=== PATIENT | male | born 1970 | race African-American/Black ===

== ENCOUNTER 2020-02-23 00:23 | Inpatient (IN) ==
[2020-02-23] MEDS ORDERED: SODIUM CHLORIDE 0.9% 1,000 ML IV STA ×2 (01:12→03:26)
[2020-02-23 01:26] LABS: Basophils % 0.2 % (0.0-0.8); Hematocrit 53.1 VOL% (42.0-52.0); Hemoglobin 17.9 GM/DL (14.0-18.0); Immature Granulocytes % 0.8 %; Immature Granulocytes Absolute 0.07 #; Lymphocytes # 0.7 10*3/uL (1.4-4.0); Lymphocytes % 8.1 % (21.2-54.2); Mean Corpuscular HGB Conc 33.7 GM/DL (32-36); Mean Corpuscular Volume 80.1 FL (87-102); Monocytes % 16.2 % (1.7-12.7); Neutrophils % 74.7 % (38.7-73.9); Platelet Count 448 T/CUMM (130-400); Red Blood Count 6.63 MC/CUMM (3.8-5.5); Red Cell Distribution Width 15.7 % (9.3-17.3); White Blood Count 9.2 T/CUMM (4-12)
[2020-02-23 01:34] LABS: INR 1.1
[2020-02-23 01:34] LABS: Allen Test Positive
[2020-02-23 01:35] LABS: ABG HCO3 20.2 MMOL/L (20-26); ABG Oxygen Saturation 91.9 % (95-100); ABG PH 7.439 (7.35-7.45); ABG PO2 66.3 MM HG (80-95); ABG TCO2 13.9 MMOL/L (23-27)
[2020-02-23] MEDS ORDERED: AZITHROMYCIN INJ 500 MG in SODIUM CHLORIDE 0.9% 250 ML IV STA (01:36)
[2020-02-23] MEDS ORDERED: cefTRIAXone 1,000 MG in SODIUM CHLORIDE 0.9% 100 ML IV STA (01:36)
[2020-02-23] MEDS ORDERED: DEXAMETHASONE 4 MG/1 ML VIAL IV STA (01:38)
[2020-02-23] MEDS ORDERED: cefTRIAXone 1,000 MG VIAL ONE (01:41)
[2020-02-23 01:54] LABS: Albumin 2.8 G/DL (3.4-5.0); Bilirubin,Total 0.9 MG/DL (0.2-1.0); Calcium 8.4 MG/DL (8.5-10.1); Osmolality,Calculated 282.2 MOS/KG (273-304); Total Protein 8.6 G/DL (6.4-8.3)
[2020-02-23] MEDS ORDERED: ONDANSETRON 4 MG/2 ML VIAL IV PRN (02:32)
[2020-02-23] MEDS ORDERED: guaiFENesin/DM ER 600-30 MG TABLET PO PRN (02:32)
[2020-02-23] MEDS ORDERED: GLUCAGON 1 MG VIAL IM PRN (02:32)
[2020-02-23] MEDS ORDERED: NICOTINE 21 MG/24 HR PATCH TRANSDERM PRN (02:32)
[2020-02-23] MEDS ORDERED: hydrALAZINE 20 MG/1 ML VIAL IV PRN (02:32)
[2020-02-23] MEDS ORDERED: DEXTROSE 50% 25 GM/50 ML VIAL IV PRN (02:32)
[2020-02-23] MEDS ORDERED: diphenhydrAMINE CAP 25 MG CAPSULE PO PRN (02:32)
[2020-02-23] MEDS ORDERED: ACETAMINOPHEN 500 MG TABLET PO PRN (02:40)
[2020-02-23] MEDS ORDERED: methylPREDNISolone SOD SUC 40 MG/1 ML VIAL IV SCH (03:00)
[2020-02-23 03:19] LABS: Anisocytosis 1+; Band Neutrophils 2 % (0-10); Lymphocytes 6 % (20-55); Segmented Neutrophils 76 % (50-85); Total Cells Counted 100
[2020-02-23 03:20] LABS: Platelet Estimate Normal
[2020-02-23] MEDS: SODIUM CHLORIDE 0.9% 1,000 ML IV SCH ×2 (06:10→13:17)
[2020-02-23] MEDS ORDERED: ENOXAPARIN 100 MG/ML SYRINGE SUBCUT ONE (06:27)
[2020-02-23] MEDS: AZITHROMYCIN 250 MG TABLET PO SCH (09:10)
[2020-02-23] MEDS ORDERED: HEPARIN 5,000 UNIT/1 ML VIAL SUBCUT SCH (10:00)
[2020-02-23] MEDS ORDERED: ENOXAPARIN 40 MG/0.4 ML SYRINGE SUBCUT SCH (10:00)
[2020-02-23 13:43] LABS: Albumin 2.3 G/DL (3.4-5.0); Bilirubin,Total 0.7 MG/DL (0.2-1.0); Calcium 7.8 MG/DL (8.5-10.1); Total Protein 7.3 G/DL (6.4-8.3)
[2020-02-24] MEDS: SODIUM CHLORIDE 0.9% 1,000 ML IV SCH ×4 (01:45→18:59)
[2020-02-24] MEDS ORDERED: SODIUM CHLORIDE 0.9% 250 ML IV ONE (05:57)
[2020-02-24] MEDS: cefTRIAXone 1,000 MG in SYRINGE 1 EACH IV SCH (06:00)
[2020-02-24] MEDS: HEPARIN 5,000 UNIT/1 ML VIAL SUBCUT SCH ×3 (06:19→22:50)
[2020-02-24 07:02] LABS: Calcium 7.9 MG/DL (8.5-10.1); Osmolality,Calculated 301.5 MOS/KG (273-304)
[2020-02-24] MEDS: DEXAMETHASONE 4 MG/1 ML VIAL IV SCH (08:45)
[2020-02-24] MEDS: AZITHROMYCIN 250 MG TABLET PO SCH (08:47)
[2020-02-24 10:11] LABS: Basophils % 0.1 % (0.0-0.8); Hematocrit 49.3 VOL% (42.0-52.0); Hemoglobin 16.1 GM/DL (14.0-18.0); Immature Granulocytes % 1.7 %; Immature Granulocytes Absolute 0.19 #; Lymphocytes # 0.6 10*3/uL (1.4-4.0); Lymphocytes % 5.3 % (21.2-54.2); Mean Corpuscular HGB Conc 32.7 GM/DL (32-36); Mean Corpuscular Volume 81.5 FL (87-102); Mean Platelet Volume 10.1 FL (9.6-12.0); Monocytes % 13.4 % (1.7-12.7); Neutrophils % 79.5 % (38.7-73.9); Platelet Count 518 T/CUMM (130-400); Red Blood Count 6.05 MC/CUMM (3.8-5.5); Red Cell Distribution Width 15.2 % (9.3-17.3); White Blood Count 11.4 T/CUMM (4-12)
[2020-02-24 10:47] LABS: Anisocytosis Slight; Band Neutrophils 2 % (0-10); Burr Cells 1+; Lymphocytes 3 % (20-55); Platelet Estimate Increased; Segmented Neutrophils 79 % (50-85); Total Cells Counted 100
[2020-02-24 10:48] LABS: Macrocytosis Slight
[2020-02-24 15:28] LABS: Basophils % 0.2 % (0.0-0.8); Hematocrit 50.6 VOL% (42.0-52.0); Hemoglobin 16.7 GM/DL (14.0-18.0); Immature Granulocytes % 2.1 %; Immature Granulocytes Absolute 0.27 #; Lymphocytes # 0.5 10*3/uL (1.4-4.0); Lymphocytes % 3.8 % (21.2-54.2); Mean Corpuscular Volume 80.3 FL (87-102); Mean Platelet Volume 10.1 FL (9.6-12.0); Monocytes % 9.1 % (1.7-12.7); Neutrophils % 84.8 % (38.7-73.9); Platelet Count 607 T/CUMM (130-400); Red Cell Distribution Width 15.7 % (9.3-17.3)
[2020-02-24 16:08] LABS: Hepatitis B Core IgM Quant 0.19 Index; Hepatitis B Surface Ag Quant < 0.10 Index; Hepatitis B Surface Ag Result Negative (Negative); Hepatitis C Virus Ab Quant 0.07 Index; Hepatitis C Virus Ab Result Negative (Negative)
[2020-02-24 16:36] LABS: Lymphocytes 1 % (20-55); Nucleated Red Blood Cells 1 (0-5); Segmented Neutrophils 84 % (50-85)
[2020-02-24 16:37] LABS: Platelet Estimate Normal; Total Cells Counted 100
[2020-02-24 17:41] LABS: ABG HCO3 21.7 MMOL/L (20-26); ABG Oxygen Saturation 91.3 % (95-100); ABG PCO2 31.8 MM HG (35-48); ABG PH 7.414 (7.35-7.45); ABG PO2 66.8 MM HG (80-95); ABG TCO2 16.9 MMOL/L (23-27)
[2020-02-24] MEDS: ASCORBIC ACID 500 MG TABLET PO SCH (22:50)
[2020-02-25] MEDS: SODIUM CHLORIDE 0.9% 1,000 ML IV SCH ×3 (05:45→18:24)
[2020-02-25] MEDS: HEPARIN 5,000 UNIT/1 ML VIAL SUBCUT SCH (06:43)
[2020-02-25 07:17] LABS: Bacteria,Urine Occasional /HPF (Few); Bilirubin,Urine Negative (Negative); Blood, Urine Moderate mg/dL (Negative); Glucose,Urine (UA) Negative (Negative); Ketones,Urine Negative (Negative); Mucus,Urine Occasional /LPF (Occasional); Nitrite,Urine Negative (Negative); Protein,Urine Negative; RBC,Urine 2 /HPF (0-4); Uric Acid Crystals,Urine Occasional /HPF (<1); Urine Appearance CLEAR (Clear); Urine Color Yellow (Yellow); Urine Specific Gravity 1.013 (1.001-1.035); Urine Urobilinogen < 2.0 EU/DL (0.2-1.0); WBC,Urine <1 /HPF (0-6)
[2020-02-25 07:32] LABS: Basophils % 0.2 % (0.0-0.8); Hematocrit 48.6 VOL% (42.0-52.0); Hemoglobin 15.6 GM/DL (14.0-18.0); Immature Granulocytes % 2.5 %; Lymphocytes # 0.4 10*3/uL (1.4-4.0); Lymphocytes % 3.7 % (21.2-54.2); Mean Corpuscular HGB Conc 32.1 GM/DL (32-36); Mean Corpuscular Volume 82.8 FL (87-102); Mean Platelet Volume 9.6 FL (9.6-12.0); Monocytes % 10.2 % (1.7-12.7); Neutrophils % 83.4 % (38.7-73.9); Platelet Count 555 T/CUMM (130-400); Red Blood Count 5.87 MC/CUMM (3.8-5.5); Red Cell Distribution Width 15.4 % (9.3-17.3); White Blood Count 11.8 T/CUMM (4-12)
[2020-02-25 07:58] LABS: Albumin 2.3 G/DL (3.4-5.0); Bilirubin,Total 0.6 MG/DL (0.2-1.0); Calcium 7.8 MG/DL (8.5-10.1); Osmolality,Calculated 289.5 MOS/KG (273-304); Total Protein 6.1 G/DL (6.4-8.3)
[2020-02-25] MEDS ORDERED: DEXTROSE 50% 25 GM/50 ML VIAL IV ONE (08:10)
[2020-02-25] MEDS ORDERED: INSULIN REGULAR 100 UNIT/ML SUBCUT ONE (08:12)
[2020-02-25] MEDS ORDERED: CALCIUM GLUCONATE 1,000 MG in SODIUM CHLORIDE 0.9% 100 ML IV ONE (08:14)
[2020-02-25 08:31] LABS: Anisocytosis 1+; Burr Cells Few; Lymphocytes 5 % (20-55); Platelet Estimate Increased; Poikilocytosis Slight; Segmented Neutrophils 84 % (50-85); Total Cells Counted 100
[2020-02-25] MEDS ORDERED: INSULIN REGULAR 10 UNIT, CALCIUM GLUCONATE 1,000 MG in DEXTROSE 10% 250 ML IV ONE (09:00)
[2020-02-25] MEDS ORDERED: SODIUM POLYSTYRENE SULFATE 15 GM/60 ML BOTTLE PO ONE (09:00)
[2020-02-25] MEDS: cefTRIAXone 1,000 MG in SYRINGE 1 EACH IV SCH (10:43)
[2020-02-25] MEDS: ENOXAPARIN 60 MG/0.6 ML SYRINGE SUBCUT SCH ×2 (10:44→21:45)
[2020-02-25] MEDS: ZINC SULFATE 220 MG CAPSULE PO SCH (10:44)
[2020-02-25] MEDS: ASCORBIC ACID 500 MG TABLET PO SCH ×2 (10:44→21:45)
[2020-02-25] MEDS: DEXAMETHASONE 4 MG/1 ML VIAL IV SCH (10:44)
[2020-02-25] MEDS: AZITHROMYCIN 250 MG TABLET PO SCH (10:45)
[2020-02-26] MEDS: SODIUM CHLORIDE 0.9% 1,000 ML IV SCH ×2 (04:01→18:24)
[2020-02-26 06:32] LABS: Basophils % 0.3 % (0.0-0.8); Eosinophils % 0.1 % (0.00-10.9); Hematocrit 45.3 VOL% (42.0-52.0); Hemoglobin 14.9 GM/DL (14.0-18.0); Immature Granulocytes % 4.2 %; Immature Granulocytes Absolute 0.49 #; Lymphocytes # 0.8 10*3/uL (1.4-4.0); Lymphocytes % 6.8 % (21.2-54.2); Mean Corpuscular HGB Conc 32.9 GM/DL (32-36); Mean Corpuscular Volume 80.9 FL (87-102); Mean Platelet Volume 9.7 FL (9.6-12.0); Monocytes % 10.5 % (1.7-12.7); Neutrophils % 78.1 % (38.7-73.9); Platelet Count 580 T/CUMM (130-400); Red Cell Distribution Width 15.1 % (9.3-17.3); White Blood Count 11.6 T/CUMM (4-12)
[2020-02-26 07:12] LABS: Albumin 2.3 G/DL (3.4-5.0); Bilirubin,Total 0.8 MG/DL (0.2-1.0); Calcium 8.2 MG/DL (8.5-10.1); Osmolality,Calculated 285.3 MOS/KG (273-304); Total Protein 6.8 G/DL (6.4-8.3)
[2020-02-26] MEDS: cefTRIAXone 1,000 MG in SYRINGE 1 EACH IV SCH (09:40)
[2020-02-26] MEDS: ENOXAPARIN 60 MG/0.6 ML SYRINGE SUBCUT SCH ×2 (09:40→22:27)
[2020-02-26] MEDS: AZITHROMYCIN 250 MG TABLET PO SCH (09:41)
[2020-02-26] MEDS: ASCORBIC ACID 500 MG TABLET PO SCH ×2 (09:41→22:27)
[2020-02-26] MEDS: SODIUM ZIRCONIUM CYCLOSILICATE 10 GM PACK PO SCH ×3 (09:41→22:27)
[2020-02-26] MEDS ORDERED: ALBUTEROL/IPRATROPIUM 3 ML NEB RESP TX PRN (10:50)
[2020-02-26] MEDS: DEXAMETHASONE 4 MG/1 ML VIAL IV SCH (11:17)
[2020-02-27 06:58] LABS: Basophils # 0.1 10*3/uL (0.0-0.2); Basophils % 0.4 % (0.0-0.8); Eosinophils % 0.2 % (0.00-10.9); Hematocrit 42.9 VOL% (42.0-52.0); Hemoglobin 14.1 GM/DL (14.0-18.0); Immature Granulocytes % 5.4 %; Immature Granulocytes Absolute 0.73 #; Lymphocytes % 7.5 % (21.2-54.2); Mean Corpuscular HGB Conc 32.9 GM/DL (32-36); Mean Corpuscular Volume 81.3 FL (87-102); Mean Platelet Volume 9.7 FL (9.6-12.0); Monocytes % 9.4 % (1.7-12.7); Neutrophils % 77.1 % (38.7-73.9); Platelet Count 615 T/CUMM (130-400); Red Blood Count 5.28 MC/CUMM (3.8-5.5); Red Cell Distribution Width 14.7 % (9.3-17.3); White Blood Count 13.5 T/CUMM (4-12)
[2020-02-27 07:10] LABS: Albumin 2.1 G/DL (3.4-5.0); Bilirubin,Total 1.7 MG/DL (0.2-1.0); Calcium 8.1 MG/DL (8.5-10.1); Osmolality,Calculated 279.5 MOS/KG (273-304); Total Protein 6.4 G/DL (6.4-8.3)
[2020-02-27 07:23] LABS: Anisocytosis Slight; Band Neutrophils 2 % (0-10); Eosinophils 1 % (0-10); Lymphocytes 10 % (20-55); Macrocytosis Slight; Platelet Estimate Increased; Segmented Neutrophils 77 % (50-85); Smudge Cells Few; Target Cells Few; Total Cells Counted 100
[2020-02-27] MEDS: cefTRIAXone 1,000 MG in SYRINGE 1 EACH IV SCH (09:01)
[2020-02-27] MEDS: ENOXAPARIN 60 MG/0.6 ML SYRINGE SUBCUT SCH ×2 (09:01→20:59)
[2020-02-27] MEDS: SODIUM ZIRCONIUM CYCLOSILICATE 10 GM PACK PO SCH ×3 (09:01→21:00)
[2020-02-27] MEDS: ZINC SULFATE 220 MG CAPSULE PO SCH (09:02)
[2020-02-27] MEDS: DEXAMETHASONE 4 MG/1 ML VIAL IV SCH (09:02)
[2020-02-27] MEDS: ASCORBIC ACID 500 MG TABLET PO SCH ×2 (09:03→20:59)
[2020-02-27] MEDS: SODIUM CHLORIDE 0.9% 1,000 ML IV SCH ×2 (09:03→20:59)
[2020-02-28 06:59] LABS: Basophils # 0.1 10*3/uL (0.0-0.2); Basophils % 0.4 % (0.0-0.8); Eosinophils % 0.2 % (0.00-10.9); Hemoglobin 13.8 GM/DL (14.0-18.0); Immature Granulocytes % 6.3 %; Immature Granulocytes Absolute 1.14 #; Lymphocytes # 1.1 10*3/uL (1.4-4.0); Lymphocytes % 6.2 % (21.2-54.2); Mean Corpuscular HGB Conc 32.9 GM/DL (32-36); Mean Corpuscular Volume 82.2 FL (87-102); Mean Platelet Volume 9.3 FL (9.6-12.0); Monocytes % 9.2 % (1.7-12.7); Neutrophils % 77.7 % (38.7-73.9); Platelet Count 641 T/CUMM (130-400); Red Blood Count 5.11 MC/CUMM (3.8-5.5); Red Cell Distribution Width 14.6 % (9.3-17.3)
[2020-02-28 07:24] LABS: Calcium 8.5 MG/DL (8.5-10.1); Osmolality,Calculated 277.5 MOS/KG (273-304)
[2020-02-28 07:27] LABS: Hypochromasia 1+; Lymphocytes 3 % (20-55); Platelet Estimate Adequate; Segmented Neutrophils 89 % (50-85); Total Cells Counted 100
[2020-02-28] MEDS: ENOXAPARIN 60 MG/0.6 ML SYRINGE SUBCUT SCH ×2 (08:49→21:20)
[2020-02-28] MEDS: cefTRIAXone 1,000 MG in SYRINGE 1 EACH IV SCH (08:49)
[2020-02-28] MEDS: DEXAMETHASONE 4 MG/1 ML VIAL IV SCH (08:49)
[2020-02-28] MEDS: ASCORBIC ACID 500 MG TABLET PO SCH ×2 (08:50→21:20)
[2020-02-28] MEDS: SODIUM CHLORIDE 0.9% 1,000 ML IV SCH (09:53)
[2020-02-28] MEDS ORDERED: MAGNESIUM SULF RIDER 2 GM in PREMIX 1 EACH IV ONE (14:30)
[2020-02-28 20:17] LABS: Albumin 2.1 G/DL (3.4-5.0); Bilirubin,Direct 0.15 MG/DL (0.0-0.20); Bilirubin,Indirect 0.7 MG/DL (0.0-1.0); Bilirubin,Total 0.8 MG/DL (0.2-1.0); Total Protein 6.5 G/DL (6.4-8.3)
[2020-02-29 05:07] LABS: Basophils # 0.1 10*3/uL (0.0-0.2); Basophils % 0.7 % (0.0-0.8); Eosinophils # 0.1 10*3/uL (0.0-0.87); Eosinophils % 0.3 % (0.00-10.9); Hematocrit 46.2 VOL% (42.0-52.0); Hemoglobin 15.3 GM/DL (14.0-18.0); Immature Granulocytes % 7.7 %; Lymphocytes # 1.4 10*3/uL (1.4-4.0); Lymphocytes % 7.1 % (21.2-54.2); Mean Corpuscular HGB Conc 33.1 GM/DL (32-36); Mean Corpuscular Volume 81.5 FL (87-102); Mean Platelet Volume 9.4 FL (9.6-12.0); Neutrophils % 75.2 % (38.7-73.9); Platelet Count 718 T/CUMM (130-400); Red Blood Count 5.67 MC/CUMM (3.8-5.5); Red Cell Distribution Width 14.6 % (9.3-17.3); White Blood Count 19.6 T/CUMM (4-12)
[2020-02-29 06:14] LABS: Calcium 8.9 MG/DL (8.5-10.1); Osmolality,Calculated 277.8 MOS/KG (273-304)
[2020-02-29 06:15] LABS: Albumin 2.2 G/DL (3.4-5.0); Bilirubin,Direct 0.18 MG/DL (0.0-0.20); Bilirubin,Indirect 0.7 MG/DL (0.0-1.0); Bilirubin,Total 0.9 MG/DL (0.2-1.0); Calcium 8.9 MG/DL (8.5-10.1); Osmolality,Calculated 276.8 MOS/KG (273-304); Total Protein 7.3 G/DL (6.4-8.3)
[2020-02-29 06:49] LABS: Anisocytosis 1+; Band Neutrophils 1 % (0-10); Hypochromasia Slight; Lymphocytes 3 % (20-55); Platelet Estimate Increased; Segmented Neutrophils 82 % (50-85); Total Cells Counted 100
[2020-02-29] MEDS: ENOXAPARIN 60 MG/0.6 ML SYRINGE SUBCUT SCH ×2 (08:51→20:24)
[2020-02-29] MEDS: ASCORBIC ACID 500 MG TABLET PO SCH ×2 (08:51→20:24)
[2020-02-29] MEDS: DEXAMETHASONE 4 MG/1 ML VIAL IV SCH (08:51)
[2020-02-29] MEDS: ZINC SULFATE 220 MG CAPSULE PO SCH (08:51)
[2020-02-29] MEDS: cefTRIAXone 1,000 MG in SYRINGE 1 EACH IV SCH (08:52)
[2020-02-29] MEDS: ALBUTEROL INHALER 18 GM INH SCH ×3 (16:27→23:08)
[2020-03-01] MEDS: ALBUTEROL INHALER 18 GM INH SCH ×6 (02:20→23:30)
[2020-03-01 06:41] LABS: Basophils # 0.1 10*3/uL (0.0-0.2); Basophils % 0.6 % (0.0-0.8); Eosinophils # 0.1 10*3/uL (0.0-0.87); Eosinophils % 0.4 % (0.00-10.9); Hemoglobin 14.6 GM/DL (14.0-18.0); Immature Granulocytes % 8.3 %; Immature Granulocytes Absolute 1.51 #; Lymphocytes # 1.4 10*3/uL (1.4-4.0); Lymphocytes % 7.8 % (21.2-54.2); Mean Corpuscular HGB Conc 32.4 GM/DL (32-36); Mean Corpuscular Volume 82.9 FL (87-102); Mean Platelet Volume 9.5 FL (9.6-12.0); Monocytes % 9.6 % (1.7-12.7); Neutrophils % 73.3 % (38.7-73.9); Platelet Count 724 T/CUMM (130-400); Red Blood Count 5.43 MC/CUMM (3.8-5.5); Red Cell Distribution Width 14.8 % (9.3-17.3); White Blood Count 18.1 T/CUMM (4-12)
[2020-03-01 07:07] LABS: Albumin 2.2 G/DL (3.4-5.0)
[2020-03-01 07:47] LABS: Lymphocytes 8 % (20-55); Segmented Neutrophils 86 % (50-85); Total Cells Counted 100
[2020-03-01 07:48] LABS: Hypochromasia 1+; Platelet Estimate Increased; Polychromasia Slight; Schistocytes Few
[2020-03-01] MEDS: ENOXAPARIN 60 MG/0.6 ML SYRINGE SUBCUT SCH ×2 (08:56→21:21)
[2020-03-01] MEDS: cefTRIAXone 1,000 MG in SYRINGE 1 EACH IV SCH (08:56)
[2020-03-01] MEDS: ASCORBIC ACID 500 MG TABLET PO SCH ×2 (08:56→21:21)
[2020-03-01] MEDS: DEXAMETHASONE 4 MG/1 ML VIAL IV SCH (08:56)
[2020-03-01 17:36] LABS: CKMB % 2.8 %; Troponin I < 0.015 NG/ML (0.00-0.045)
[2020-03-02] MEDS: ALBUTEROL INHALER 18 GM INH SCH ×6 (03:40→22:52)
[2020-03-02 04:10] LABS: Basophils # 0.1 10*3/uL (0.0-0.2); Basophils % 0.4 % (0.0-0.8); Eosinophils # 0.1 10*3/uL (0.0-0.87); Eosinophils % 0.4 % (0.00-10.9); Hematocrit 45.8 VOL% (42.0-52.0); Hemoglobin 14.8 GM/DL (14.0-18.0); Immature Granulocytes % 8.4 %; Immature Granulocytes Absolute 1.53 #; Lymphocytes # 1.2 10*3/uL (1.4-4.0); Lymphocytes % 6.7 % (21.2-54.2); Mean Corpuscular HGB Conc 32.3 GM/DL (32-36); Mean Corpuscular Volume 82.8 FL (87-102); Mean Platelet Volume 9.4 FL (9.6-12.0); Monocytes % 10.8 % (1.7-12.7); Neutrophils % 73.3 % (38.7-73.9); Platelet Count 671 T/CUMM (130-400); Red Blood Count 5.53 MC/CUMM (3.8-5.5); Red Cell Distribution Width 14.6 % (9.3-17.3); White Blood Count 18.1 T/CUMM (4-12)
[2020-03-02 04:33] LABS: Lymphocytes 4 % (20-55); Platelet Estimate Increased; Segmented Neutrophils 89 % (50-85); Total Cells Counted 100
[2020-03-02 05:12] LABS: Albumin 2.4 G/DL (3.4-5.0); Bilirubin,Total 1.4 MG/DL (0.2-1.0); Osmolality,Calculated 276.8 MOS/KG (273-304); Total Protein 7.1 G/DL (6.4-8.3)
[2020-03-02] MEDS: cefTRIAXone 1,000 MG in SYRINGE 1 EACH IV SCH (08:01)
[2020-03-02] MEDS: DEXAMETHASONE 4 MG/1 ML VIAL IV SCH (08:01)
[2020-03-02] MEDS: ENOXAPARIN 60 MG/0.6 ML SYRINGE SUBCUT SCH ×2 (08:01→22:50)
[2020-03-02] MEDS: ASCORBIC ACID 500 MG TABLET PO SCH ×2 (13:10→22:50)
[2020-03-03] MEDS: ALBUTEROL INHALER 18 GM INH SCH ×6 (03:16→23:10)
[2020-03-03] MEDS: ASCORBIC ACID 500 MG TABLET PO SCH ×2 (08:11→20:36)
[2020-03-03] MEDS: ENOXAPARIN 60 MG/0.6 ML SYRINGE SUBCUT SCH ×2 (08:11→20:36)
[2020-03-03] MEDS: DEXAMETHASONE 4 MG/1 ML VIAL IV SCH (08:12)
[2020-03-04] MEDS: ALBUTEROL INHALER 18 GM INH SCH ×6 (03:44→23:04)
[2020-03-04] MEDS: ENOXAPARIN 60 MG/0.6 ML SYRINGE SUBCUT SCH ×2 (08:13→20:09)
[2020-03-04] MEDS: DEXAMETHASONE 4 MG/1 ML VIAL IV SCH (08:13)
[2020-03-04] MEDS: ASCORBIC ACID 500 MG TABLET PO SCH ×2 (08:13→20:08)
[2020-03-05] MEDS: ALBUTEROL INHALER 18 GM INH SCH ×6 (03:57→23:41)
[2020-03-05] MEDS: DEXAMETHASONE 4 MG/1 ML VIAL IV SCH (08:45)
[2020-03-05] MEDS: ENOXAPARIN 60 MG/0.6 ML SYRINGE SUBCUT SCH ×2 (08:46→20:19)
[2020-03-05] MEDS: ASCORBIC ACID 500 MG TABLET PO SCH ×2 (08:46→20:19)
[2020-03-06] MEDS: ALBUTEROL INHALER 18 GM INH SCH ×6 (03:18→22:28)
[2020-03-06 07:29] LABS: Basophils % 0.2 % (0.0-0.8); Eosinophils # 0.1 10*3/uL (0.0-0.87); Eosinophils % 0.4 % (0.00-10.9); Hematocrit 48.2 VOL% (42.0-52.0); Hemoglobin 15.5 GM/DL (14.0-18.0); Immature Granulocytes Absolute 0.32 #; Lymphocytes # 1.7 10*3/uL (1.4-4.0); Lymphocytes % 10.5 % (21.2-54.2); Mean Corpuscular HGB Conc 32.2 GM/DL (32-36); Mean Corpuscular Volume 82.7 FL (87-102); Monocytes % 9.1 % (1.7-12.7); Neutrophils % 77.8 % (38.7-73.9); Platelet Count 493 T/CUMM (130-400); Red Blood Count 5.83 MC/CUMM (3.8-5.5); White Blood Count 15.9 T/CUMM (4-12)
[2020-03-06 07:50] LABS: Blood Urea Nitrogen 29 MG/DL (7-18); Calcium 9.5 MG/DL (8.5-10.1); Estimated Glom Filtration Rate 96 ML/MIN; Ferritin 782.6 ng/ml (26-388); Glucose 82 MG/DL (74-106); Osmolality,Calculated 274.1 MOS/KG (273-304)
[2020-03-06] MEDS: DEXAMETHASONE 4 MG/1 ML VIAL IV SCH (09:00)
[2020-03-06] MEDS: ASCORBIC ACID 500 MG TABLET PO SCH ×2 (09:00→20:20)
[2020-03-06] MEDS: ENOXAPARIN 60 MG/0.6 ML SYRINGE SUBCUT SCH ×2 (09:00→20:20)
[2020-03-07] MEDS: ALBUTEROL INHALER 18 GM INH SCH ×3 (03:27→11:34)
[2020-03-07] MEDS: ASCORBIC ACID 500 MG TABLET PO SCH (08:11)
[2020-03-07] MEDS: DEXAMETHASONE 4 MG/1 ML VIAL IV SCH (08:11)
[2020-03-07] MEDS: ENOXAPARIN 60 MG/0.6 ML SYRINGE SUBCUT SCH (08:13)
[2020-03-07 12:19] VITALS: BP 120/70
== END 2020-03-07 13:14 | disposition home or self-care (01) | DRG 177 ==
LOC: N.ED 00:23 → N.EDINP 02:32 → SUATTDRO 02:32 → N.2E 02-25 05:45
PROVIDERS: ADMIT Emergency Medicine; ATTEND Emergency Medicine